=== PATIENT | male | born 1990 | race Caucasian/White ===

== ENCOUNTER 2021-08-27 20:17 | Emergency (ER) | payer MEDICAID, OTHER ==
[~2021-08-27] VITALS: Ht 167.6 cm; Wt 88.5 kg
[2021-08-27 20:20] VITALS: BP 134/63
[2021-08-27] MEDS ORDERED: ACETAMINOPHEN EXTRA STRENGTH 500 MG TAB PO ONE (20:35)
[2021-08-27] MEDS ORDERED: IBUPROFEN 400 MG TAB PO ONE (20:35)
[2021-08-27 21:06] VITALS: BP 136/87
== END 2021-08-27 21:06 | disposition home or self-care (01) ==
LOC: MED 20:17
DX: S93.402A Sprain of unspecified ligament of left ankle, initial encounter (principal); X58.XXXA Exposure to other specified factors, initial encounter; Y93.89 Activity, other specified; Y92.22 Religious institution as the place of occurrence of the external cause; Y99.8 Other external cause status
CPT/HCPCS: 73610; 99283; Q0092

== ENCOUNTER 2021-09-15 18:13 | Emergency (ER) | payer OTHER ==
[~2021-09-15] VITALS: Ht 167.6 cm; Wt 91.6 kg
[2021-09-15 18:46] VITALS: BP 156/100
[2021-09-15] MEDS ORDERED: HYDROcodone/APAP 5/325 MG 1 TAB TAB PO ONE (19:20)
--- NOTE | 2021-09-15 20:20 | NUR ---
LEFT PRIOR TO RECEIVING DISCHARGE INSTRUCTIONS AND MEDS.
[2021-09-15] MEDS ORDERED: HYDROcodone/APAP 5/325 MG 1 TAB TAB ONE (20:29)
== END 2021-09-15 20:20 | disposition left against medical advice (07) ==
LOC: MED 18:13
DX: S30.850A Superficial foreign body of lower back and pelvis, initial encounter (principal); Z98.890 Other specified postprocedural states; X58.XXXA Exposure to other specified factors, initial encounter; Y92.89 Other specified places as the place of occurrence of the external cause; Y93.89 Activity, other specified; Y99.8 Other external cause status
CPT/HCPCS: 99281; 99283